=== PATIENT | female | born 1980 | race Caucasian/White ===

== ENCOUNTER 2019-06-01 21:32 | Emergency (ER) | payer MEDICARE, MEDICAID ==
[~2019-06-01] VITALS: Ht 154.9 cm; Wt 68.2 kg
[2019-06-01] MEDS ORDERED: NOVOLOG FLEX100 U/ML SQ (22:55)
[2019-06-01] MEDS ORDERED: INTUNIV1 MG PO (22:55)
[2019-06-01] MEDS ORDERED: LEVEMIR FLEX100 U/ML SQ (22:55)
[2019-06-01] MEDS ORDERED: GABAPENTIN800 MG PO (22:56)
[2019-06-01] MEDS ORDERED: EFFEXOR XR75 M2 PO (22:56)
[2019-06-01] MEDS ORDERED: LEVOTHYROXIN0.025 MG PO (22:56)
[2019-06-01] MEDS ORDERED: BUSPIRONE HYDRO10 MG PO (22:57)
[2019-06-01] MEDS ORDERED: PLAQUENIL200 MG PO (22:58)
[2019-06-01] MEDS ORDERED: ZESTRIL5 M1 PO (22:58)
[2019-06-01] MEDS ORDERED: GLUCOTROL10 M2 PO (22:59)
[2019-06-01] MEDS ORDERED: SINGULAIR PO (22:59)
[2019-06-01] MEDS ORDERED: CRESTOR20 MG PO (22:59)
[2019-06-01] MEDS ORDERED: LORATADINE10 MG PO (23:00)
[2019-06-01] MEDS ORDERED: ZETIA10 M1 PO (23:00)
[2019-06-01] MEDS ORDERED: VISTARIL25 M1 PO (23:01)
[2019-06-01] MEDS ORDERED: NORVASC 5MG5 MG/TAB PO (23:01)
[2019-06-01] MEDS ORDERED: METFORMIN HYD1000 MG PO (23:01)
[2019-06-01] MEDS ORDERED: NEXIUM 40MG40 MG PO (23:02)
[2019-06-02 00:05] VITALS: BP 111/84
== END 2019-06-02 00:05 | disposition home or self-care (01) ==
LOC: ED 21:32
DX: E11.65 Type 2 diabetes mellitus with hyperglycemia (principal); E03.9 Hypothyroidism, unspecified; J44.9 Chronic obstructive pulmonary disease, unspecified; E11.22 Type 2 diabetes mellitus with diabetic chronic kidney disease; N18.9 Chronic kidney disease, unspecified; Z90.49 Acquired absence of other specified parts of digestive tract; Z98.890 Other specified postprocedural states; Z79.4 Long term (current) use of insulin

== ENCOUNTER 2019-06-02 20:57 | Emergency (ER) | payer MEDICARE, MEDICAID ==
[~2019-06-02] VITALS: Ht 154.9 cm; Wt 68.2 kg
[~2019-06-02 20:57] MED LIST: BUSPIRONE HYDRO10 MG PO; CRESTOR20 MG PO; EFFEXOR XR75 M2 PO; GABAPENTIN800 MG PO; GLUCOTROL10 M2 PO; INTUNIV1 MG PO; LEVEMIR FLEX100 U/ML SQ; LEVOTHYROXIN0.025 MG PO; LORATADINE10 MG PO; METFORMIN HYD1000 MG PO; NEXIUM 40MG40 MG PO; NORVASC 5MG5 MG/TAB PO; NOVOLOG FLEX100 U/ML SQ; PLAQUENIL200 MG PO; SINGULAIR PO; VISTARIL25 M1 PO; ZESTRIL5 M1 PO; ZETIA10 M1 PO
[2019-06-02 22:09] LABS: BASO # 0.1 (0.02-0.10); EOS # 0.1 (0.04-0.40); EOS % 0.8 % (1.0-5.0); HEMATOCRIT 43.3 % (37.0-47.0); HEMOGLOBIN 14.5 g/dL (12.5-16.0); LYMPH# 2.8 (1.50-4.00); MEAN CELL VOLUME 83 fl (78-100); MEAN CORPUSCULAR HEMOGLOBIN 28 pg (27-31); MEAN CORPUSCULAR HGB CONC 34 g/dL (33-37); MEAN PLATELET VOLUME 9.7 fl (7.4-10.4); MONO # 0.9 (0.20-0.80); PLATELET COUNT 292 K/mm3 (130-400); RED BLOOD COUNT 5.22 M/mm3 (4.10-5.30); RED CELL DISTRIBUTION WIDTH 12.9 % (11.5-14.5); WHITE BLOOD COUNT 16.7 K/mm3 (4.8-10.8)
[2019-06-02 22:12] LABS: ALBUMIN 4.7 g/dL (3.5-5.0); POTASSIUM 3.5 mmol/L (3.5-5.1)
[2019-06-02 22:13] LABS: CALCIUM 10.3 mg/dL (8.3-10.5)
[2019-06-02 22:14] LABS: TOTAL PROTEIN 7.9 g/dL (6.4-8.3)
[2019-06-02 22:15] LABS: NEU # 12.9 (1.40-6.50)
[2019-06-02 22:16] LABS: TOTAL BILIRUBIN 0.3 mg/dL (0.2-1.2)
[2019-06-02 22:29] LABS: URINE APPEARANCE HAZY; URINE BILIRUBIN NEGATIVE (NEGATIVE); URINE BLOOD NEGATIVE (NEGATIVE); URINE COLOR LT YELLOW; URINE GLUCOSE NEGATIVE (NEGATIVE); URINE KETONE NEGATIVE (NEGATIVE); URINE LEUKOCYTE ESTERASE NEGATIVE (NEGATIVE); URINE NITRATE NEGATIVE (NEGATIVE); URINE PROTEIN(semi-quant) NEGATIVE (NEGATIVE); URINE UROBILINOGEN NORMAL (NORMAL); URINE WBC 0-1 /hpf (0-3)
[2019-06-02 23:18] VITALS: BP 91/60
== END 2019-06-02 23:18 | disposition home or self-care (01) ==
LOC: ED 20:57
PROVIDERS: Nurse Practitioner Family
DX: E11.649 Type 2 diabetes mellitus with hypoglycemia without coma (principal); F17.210 Nicotine dependence, cigarettes, uncomplicated; Z79.4 Long term (current) use of insulin